=== PATIENT | female | born 1960 | race Caucasian/White ===

== ENCOUNTER → 2016-06-06 | Outpatient (CLI) | payer BC ==
[~2016-06-06] MED LIST: AZIT-21 PO; CALC-987 PO; CYAN50008 PO; CYCL10TA9 PO; FLUO20CA25 PO; GLUC-116 PO; IBP800T PO; MULT-35 PO; OMG1KC PO; OXYC-188 PO; TRIA16.5 NS; VITA-240 PO
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
--- NOTE | 2016-06-11 14:02 | Diagnostic Imaging Report ---
Bilateral screening mammogram The current study was also evaluated with a Computer Aided Detection (CAD) system. Indication: Screening. No current complaints stated on the questionnaire. COMPARISON: 05/18/14 Findings: The breasts are composed of scattered fibroglandular densities. There is a 7 mm focal asymmetry in the central aspect of the left breast. The right breast demonstrate no mass, architectural distortion or suspicious calcification. IMPRESSION: Focal compression view and ultrasound evaluation for central left breast focal asymmetry is recommended. BI-RADS 0. ACR BI-RADS Category 0: Incomplete. (Needs additional imaging evaluation). Result letter will be mailed to the patient. Note: At least 10% of breast cancer is not imaged by mammography. Dictated by: Dictated on workstation # [id number]
== END ==
LOC: RAD 13:18
PROVIDERS: ATTEND Family Medicine
DX: Z12.31 Encounter for screening mammogram for malignant neoplasm of breast (principal)
CPT/HCPCS: 77067

== ENCOUNTER → 2016-06-13 | Outpatient (CLI) | payer BC ==
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
--- NOTE | 2016-06-13 08:17 | Diagnostic Imaging Report ---
EXAMINATION: Left breast diagnostic mammogram. CAD is utilized. The current study was also evaluated with a Computer Aided Detection (CAD) system. INDICATION: Asymmetries in the central aspect of the left breast. FINDINGS: The left breast is composed of scattered fibroglandular densities. The previously seen asymmetry is less prominent on the cc projection and appear near completely resolved on the MLO projection. This is in favor of summation artifact of parenchyma. IMPRESSION: Less prominent asymmetry on focal compression views. May relate to summation artifact of parenchyma. Ultrasound evaluation pending. BI-RADS 0. ACR BI-RADS Category 0: Incomplete. (Needs additional imaging evaluation). Result letter will be mailed to the patient. Note: At least 10% of breast cancer is not imaged by mammography. Dictated by: Dictated on workstation # [id number]
--- NOTE | 2016-06-13 19:10 | Diagnostic Imaging Report ---
INDICATION: Left breast ultrasound. INDICATION: Asymmetries in the central aspect of the left breast. FINDINGS: The four quadrants and retroareolar region of the left breast were scanned. There are two adjacent simple cysts, measuring up to 5 mm each, at the 7:00 zone 2 cm from the nipple. This probably explains the asymmetry seen on mammography with no suspicious lesion seen. IMPRESSION: Simple cysts at the 7:00 zone, 2 cm from the nipple. This correlates with the asymmetry seen with no suspicious lesion. Annual screening mammogram recommended. ACR BI-RADS Category 2: Benign findings. Result letter will be mailed to the patient. Note: At least 10% of breast cancer is not imaged by mammography. Dictated by: Dictated on workstation # [id number]
== END ==
LOC: RAD 07:48
PROVIDERS: ATTEND Family Medicine
DX: R92.8 Other abnormal and inconclusive findings on diagnostic imaging of breast (principal)
CPT/HCPCS: 76641

== ENCOUNTER 2016-07-04 08:52 | Outpatient (CLI) | payer BC ==
[~2016-07-04] VITALS: Ht 167.6 cm; Wt 106.3 kg
[~2016-07-04 08:52] MED LIST changes: -CALC-987 PO; -CYAN50008 PO; -GLUC-116 PO; -MULT-35 PO; -OMG1KC PO; -OXYC-188 PO; -VITA-240 PO
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
[2016-07-04] MEDS ORDERED: GLUC-116 PO (09:12)
[2016-07-04] MEDS ORDERED: VITA-240 PO (09:12)
[2016-07-04] MEDS ORDERED: CALC-987 PO (09:12)
[2016-07-04] MEDS ORDERED: MULT-35 PO (09:12)
[2016-07-04] MEDS ORDERED: OMG1KC PO (09:12)
[2016-07-04] MEDS ORDERED: CYAN50008 PO (09:12)
[2016-07-04 09:25] VITALS: BP 126/79
== END 2016-07-04 10:30 | disposition home or self-care (01) ==
LOC: PREOP 08:52
PROVIDERS: ATTEND Orthopaedic Surgery
DX: Z01.818 Encounter for other preprocedural examination (principal); Z11.2 Encounter for screening for other bacterial diseases; M75.102 Unspecified rotator cuff tear or rupture of left shoulder, not specified as traumatic
CPT/HCPCS: 87081

== ENCOUNTER 2016-07-10 06:09 | Day surgery (SDC) | payer BC ==
--- NOTE | 2016-07-09 11:05 | HISTORY AND PHYSICAL ---
DICTATING PHYSICIAN: Dr. Boggs DATE OF ADMISSION: 07/10/2016 Outpatient surgery for left shoulder arthroscopy, possible rotator cuff repair. HISTORY: The patient is a 55-year-old female with progressively worsening left shoulder pain. She has undergone injections, which provided only temporary relief of her symptoms. She underwent an MRI which reveals at least a partial thickness tearing of the supraspinatus. She reports activity limitations, difficulty with sleep and interference with her activities of daily living, and therefore has elected to proceed with surgical intervention as conservative measures have not shown any improvement. REVIEW OF SYSTEMS: No chest pain, no shortness of breath. No dysuria. PAST MEDICAL HISTORY: Depression. PAST SURGICAL HISTORY: 1. Herniorrhaphy. 2. Appendectomy. FAMILY HISTORY: Significant for breast cancer. PRIMARY CARE PROVIDER: Dr. Agarwal MEDICATIONS: None. ALLERGIES: 1. SULFA. 2. PENICILLIN. 3. CODEINE. SOCIAL HISTORY: The patient drinks alcohol rarely, denies tobacco use. PHYSICAL EXAMINATION: The patient's well-developed, well-nourished and in no acute distress. HEENT: Normocephalic, atraumatic. Pupils are equal, and reactive to light, oropharynx is clear. NECK: Supple. No lymphadenopathy. LUNGS: Clear to auscultation bilaterally. HEART: Regular rate and rhythm. ABDOMEN: Soft, nontender, nondistended. EXTREMITY EXAM: The left shoulder demonstrates positive Neer and positive Schultz sign. She has positive [place]'s maneuver, pain with apprehension. She has pain with resisted abduction and external rotation but no gross weakness noted. She is nontender over her acromioclavicular joint and she has no pain with crossed body adduction. She has full active forward elevation, external and internal rotation. IMPRESSION: Left shoulder partial thickness rotator cuff tear, likely SLAP tear. PLAN: Left shoulder arthroscopy, biceps tenotomy, acromioplasty, possible open rotator cuff repair. The risks, benefits, options, ramifications and recovery have been discussed at length with the patient and she understands and wishes to proceed. Job ID: [id number] Dictated Date: 07/02/2016 09:40:00 Gray Tender Date: 07/02/2016 11:30:48/jovanna
[~2016-07-10] VITALS: Ht 167.6 cm; Wt 106.3 kg
[~2016-07-10 06:09] MED LIST changes: +CALC-987 PO; +CYAN50008 PO; +GLUC-116 PO; +MULT-35 PO; +OMG1KC PO; +VITA-240 PO
--- OUTSIDE RECORDS SUMMARY | 2016-07-10 06:15 | XMS REPORT | Continuity of Care Document ---
Author Author [facility] Organization [facility] Address Unknown Phone Unavailable Care Team Providers Care Sash Clamp Operator Name Role Phone ELIZABETH JAMISON MD PCP Insurance Providers Payer Name Policy Number Subscriber Name Relationship [facility] [id number] Samantha Malone 18 Self / Same As Patient Advance Directives Directive Response Recorded Date/Time Advance Directives No 07/04/16 9:05am Health Care Power of Secondary English Teacher No 07/04/16 9:05am Organ Donor No 07/04/16 9:05am Resuscitation Status Full Code 07/04/16 9:05am Problems No problem information available. Medications Current Home Medications Medication Dose Units Route Directions Days/Qty Instructions Start Date Multivitamin 1 Each 1 Each Oral Daily 07/04/16 Gluc/Shyam-Msm#2/C/D3/Ajlil/Born 1 Each 1 Each Oral Daily 07/04/16 Vitamin E (Dl,Tocopheryl Acet) 400 Unit 400 Unit Oral Daily 07/04/16 [place] 3 Polyunsat Fatty Acids 1,000 Mg 1,000 Mg Oral Daily 07/04/16 Calcium Carbonate/Vitamin D3 1 Each 1 Each Oral Daily 07/04/16 Cyanocobalamin (Vitamin B-12) 5,000 Mcg 5,000 Mcg Oral Daily Past Home Medications Medication Directions Ordered Status Fluoxetine Hcl (Prozac) 20 Mg Capsule, 20 Mg Oral Daily 09/13/09 Discontinued Triamcinolone Acetonide 16.5 Gm [place], 16.5 Gm Nasal Twice A Day 07/05/12 Discontinued Azithromycin (Zpak) 250 Mg Tab, 2 Tab Oral Daily 07/05/12 Discontinued Cyclobenzaprine Hcl (Flexeril) 10 Mg Tablet, 1 Each Oral Q8hr Prn 01/04/13 Discontinued Ibuprofen 800 Mg Tab, 800 Mg Oral Give Every 8 Hrs On Schedule as needed 01/08 Discontinued Social History Social History Problem Response Recorded Date/Time Alcohol Use Denies Use 01/04/2013 2:19pm Recreational Drug Use No 01/04/2013 2:19pm Recent Foreign Travel No 07/04/2016 9:03am Recent Infectious Disease Exposure No 07/04/2016 9:03am Sexually Transmitted Disease No 07/04/2016 9:05am HIV/AIDS No 07/04/2016 9:05am Smoking Status Never a Smoker 07/04/2016 9:05am Recent Hopitalizations No 07/04/2016 9:05am Sexually Transmitted Disease No 07/04/2016 9:05am Query Response Start Date Stop Date Smoking Status Never a Smoker Hospital Discharge Instructions No hospital discharge instructions. Plan of Care Discharge Date 07/04/16 10:30am Prescriptions See Medication Section Functional Status No functional status results. Allergies, Adverse Reactions, Alerts Allergen Type Severity Reaction Status Last Updated Penicillins ([id number]) Allergy Intermediate HIVES Active 07/04/16 Sulfa (Sulfonamide Antibiotics) (G042429398) Allergy Intermediate HIVES Active 07/04/16 hydrocodone (M973547382) Allergy Mild RASH Active 07/05/12 egg (M484563763) Allergy Unknown Active 07/05/12 milk (H468593464) Allergy Unknown Active 07/04/16 CHOCOLATE Allergy Unknown Active 07/05/12 REFINED SUGAR Allergy Unknown Active 07/05/12 Immunizations No immunization records. Vital Signs Acute Vital Signs Vital Response Date/Time Pulse Rate (adult) 79 bpm (60 - 90) 07/04/2016 9:25am Respiratory Rate 16 bpm (12 - 24) 07/04/2016 9:25am O2 Sat by Pulse Oximetry 99 % (88 - 100) 07/04/2016 9:25am Blood Pressure 126/79 mm Hg 07/04/2016 9:25am Blood Pressure Mean 95 mm Hg 07/04/2016 9:25am Pain Numeric Pain Scale 2 07/04/2016 9:25am Height (Feet) 5 feet 07/04/2016 9:03am Height (Inches) 6.00 inches 07/04/2016 9:03am Height (Calculated Centimeters) 167.190401 cm 07/04/2016 9:03am Weight (Pounds) 234 pounds 07/04/2016 9:03am Weight (Ounces) 4.0 oz 07/04/2016 9:03am Weight (Calculated Grams) 765059.01 gm 07/04/2016 9:03am Weight (Calculated Kilograms) 106.568934 kilograms 07/04/2016 9:03am Calculated BMI 37.8 07/04/2016 9:03am Results No known relevant diagnostic tests, laboratory data and/or discharge summary. Procedures No known history of procedures. Encounters Encounter Location Arrival/Admit Date Discharge/Depart Date Attending Provider Departed Clinic [facility] 07/04/16 8:52am 07/04/16 10: 30am KUNAL CRUZ MD Registered Clinic [facility] 06/13/16 7:48am ELIZABETH JAMISON MD Registered Clinic [facility] 06/06/16 1:18pm ELIZABETH JAMISON MD
--- OUTSIDE RECORDS SUMMARY | 2016-07-10 06:15 | XMS REPORT | Continuity of Care Document ---
Author Author [facility] Organization [facility] Address Unknown Phone Unavailable Care Team Providers Care Nursing Unit Manager Name Role Phone ELIZABETH JAMISON MD PCP Insurance Providers Payer Name Policy Number Subscriber Name Relationship [facility] [id number] Samantha Malone 18 Self / Same As Patient Advance Directives Directive Response Recorded Date/Time Advance Directives No 07/04/16 9:05am Health Care Power of Pack Press Operator No 07/04/16 9:05am Organ Donor No 07/04/16 9:05am Resuscitation Status Full Code 07/04/16 9:05am Problems No problem information available. Medications Current Home Medications Medication Dose Units Route Directions Days/Qty Instructions Start Date Multivitamin 1 Each 1 Each Oral Daily 07/04/16 Gluc/Shyam-Msm#2/C/D3/Jalil/Born 1 Each 1 Each Oral Daily 07/04/16 Vitamin E (Dl,Tocopheryl Acet) 400 Unit 400 Unit Oral Daily 07/04/16 [place] 3 Polyunsat Fatty Acids 1,000 Mg 1,000 Mg Oral Daily 07/04/16 Calcium Carbonate/Vitamin D3 1 Each 1 Each Oral Daily 07/04/16 Cyanocobalamin (Vitamin B-12) 5,000 Mcg 5,000 Mcg Oral Daily Past Home Medications Medication Directions Ordered Status Fluoxetine Hcl (Prozac) 20 Mg Capsule, 20 Mg Oral Daily 09/13/09 Discontinued Triamcinolone Acetonide 16.5 Gm [place], 16.5 Gm Nasal Twice A Day 07/05/12 [...] Type Severity Reaction Status Last Updated Penicillins ([id number]) Allergy Intermediate HIVES Active 07/04/16 Sulfa (Sulfonamide Antibiotics) (H550895576) Allergy Intermediate HIVES Active 07/04/16 hydrocodone (W499815287) Allergy Mild RASH Active 07/05/12 egg (X878910072) Allergy Unknown Active 07/05/12 milk (N349488703) Allergy Unknown Active 07/04/16 CHOCOLATE Allergy Unknown [...] 6.00 inches 07/04/2016 9:03am Height (Calculated Centimeters) 167.485037 cm 07/04/2016 9:03am Weight (Pounds) 234 pounds 07/04/2016 9:03am Weight (Ounces) 4.0 oz 07/04/2016 9:03am Weight (Calculated Grams) 117245.01 gm 07/04/2016 9:03am Weight (Calculated Kilograms) 106.735264 kilograms 07/04/2016 9:03am Calculated BMI 37.8 07/04/2016 9:03am Results No known relevant diagnostic tests, laboratory data and/or discharge summary. Procedures No known history of procedures. Encounters Encounter Location Arrival/Admit Date Discharge/Depart Date Attending Provider Departed Clinic [facility] 07/04/16 8:52am 07/04/16 10: 30am KUNAL CRUZ MD Registered Clinic [facility] 06/13/16 7:48am ELIZABETH JAMISON MD Registered Clinic [facility] 06/06/16 1:18pm ELIZABETH JAMISON MD
[2016-07-10 06:30] VITALS: BP 136/95
[2016-07-10] MEDS ORDERED: CATHETER FLUSH 10 ML SYR IV PRN (06:45)
[2016-07-10] MEDS ORDERED: CLINDAMYCIN 600 MG/50 ML IVPB 50 ML IV ONE (06:45)
[2016-07-10] MEDS ORDERED: ROPIVACAINE 5MG/ML 30ML VIAL ONE (06:46)
[2016-07-10] MEDS ORDERED: MIDAZOLAM 2 MG/2 ML (VERSED) VIAL ONE (06:46)
[2016-07-10] MEDS ORDERED: fentaNYL INJECTION 100 MCG/2 ML AMP ONE (07:11)
[2016-07-10] MEDS ORDERED: LIDOCAINE PF 2% 10 ML (XYLOCAINE) AMP ONE (07:11)
[2016-07-10] MEDS ORDERED: proPOfol 200 MG/20 ML (DIPRIVAN) VIAL IV ONE (07:11)
[2016-07-10] MEDS ORDERED: BUPIVACAINE 0.5% 30 ML (SENSORCAINE) VIAL ONE (07:17)
[2016-07-10] MEDS ORDERED: morphine PF (DURAMORPH) 10 MG/10 ML AMP ONE (07:17)
[2016-07-10] MEDS ORDERED: LACTATED RINGERS 1,000 ML IV PRN (07:22)
--- NOTE | 2016-07-10 07:22 | Progress Note-Pre Operative ---
Pre-Operative Progress Note H&P Reviewed The H&P was reviewed, patient examined and no changes noted. Date H&P Reviewed: Jul 10, 2016 Time H&P Reviewed: 07:11 Pre-Operative Diagnosis: left shoulder rotator cuff and SLAP tears KUNAL CRUZ MD Jul 10, 2016 07:22
--- NOTE | 2016-07-10 07:23 | Progress Note-Post Operative ---
Post-Operative Progess Note Inspector Brake Lining Osvaldo Marcum Pre-Operative Diagnosis left shoulder rotator cuff and SLAP tears Post-Operative Diagnosis left shoulder SLAP tear and rotator cuff tear Post-Op Procedure Note Date of Procedure: Jul 10, 2016 Name of Procedure: left shoulder aarthroscopic biceps tenotomy, acromioplasty, and open rotator cuff repair Anesthesia Type GETA plus interscalene Estimated blood loss (mL): minimal Packing: none Specimen(s) collected none KUNAL CRUZ MD Jul 10, 2016 07:23
[2016-07-10] MEDS ORDERED: oxyCODONE/APAP 5/325MG (PERCOCET 5) TABLET PO PRN (07:45)
[2016-07-10] MEDS ORDERED: LACTATED RINGERS 1,000 ML IV ONE (07:53)
[2016-07-10] MEDS ORDERED: ONDANSETRON 4 MG/2 ML (SDV) Z0FRAN ONE (07:53)
[2016-07-10] MEDS ORDERED: SEVOFLURANE (ULTANE) 15 ML INHAL SOLN ONE ×2 (07:53→08:26)
[2016-07-10] MEDS ORDERED: GLYCOPYRROLATE 0.2 MG/ML (ROBINUL) 2 ML VIAL ONE (08:19)
[2016-07-10] MEDS ORDERED: NEOSTIGMINE (BLOXIVERZ ) 1 MG/1ML 10 ML VIAL ONE (08:19)
[2016-07-10] MEDS ORDERED: ONDANSETRON 4 MG/2 ML (SDV) Z0FRAN IV PRN (08:45)
[2016-07-10] MEDS ORDERED: fentaNYL INJECTION 100 MCG/2 ML AMP IV PRN (08:45)
[2016-07-10] MEDS ORDERED: PROMETHAZINE INJ 25 MG/ML (PHENERGAN) AMP IV PRN (08:45)
[2016-07-10] MEDS ORDERED: morphine INJ 10 MG/ML 1ML (SYR OR VIAL) IV PRN (08:45)
[2016-07-10 09:45] VITALS: BP 103/62
[2016-07-10 10:15] VITALS: BP 114/87
[2016-07-10 10:45] VITALS: BP 118/59
[2016-07-10] MEDS ORDERED: OXYC-188 PO (10:45)
[2016-07-10 12:00] VITALS: BP 118/59
--- NOTE | 2016-07-10 13:28 | OPERATIVE REPORT ---
PROCEDURE PHYSICIAN: KUNAL CRUZ DATE OF PROCEDURE: 07/10/2016 PREOPERATIVE DIAGNOSIS: 1. Left shoulder SLAP tear. 2. Left shoulder rotator cuff tear. POSTOPERATIVE DIAGNOSIS: 1. Left shoulder SLAP tear. 2. Left shoulder rotator cuff tear. PROCEDURE: 1. Left shoulder arthroscopic biceps tenotomy. 2. Left shoulder arthroscopic acromioplasty. 3. Left shoulder open rotator cuff repair. SURGEON: Ambrose INSTRUMENT LENS INSPECTOR: Osvaldo Marcum who assisted throughout the procedure and closed the incisions. ANESTHESIA: General endotracheal plus interscalene nerve block by Sabino Beck CRNA. ESTIMATED BLOOD LOSS: Minimal. DRAINS: None. COMPLICATIONS: None. POSTOPERATIVE PLAN: Passive range of motion and sling wear for 4 weeks. DISPOSITION: The patient was transported to the recovery room, awake and in stable condition. STATEMENT OF MEDICAL NECESSITY: The patient is a 55-year-old, uuvcg-obba-ebozdump female who sustained a left greater tuberosity fracture, in the fall. This had gone on to union but she continued to have pain. An MRI revealed a greater than 50% partial thickness rotator cuff tear of the supraspinatus and due to failure to respond to extensive conservative measures, the patient elected to proceed with surgical intervention. Examination under anesthesia revealed forward elevation 170 degrees, external rotation 85 degrees and internal rotation 70 degrees. Arthroscopic findings demonstrated a 75% thickness tear of the supraspinatus at the midportion of its insertion. The greater tuberosity was healed. There was a type II SLAP tear. The remainder of the labrum was intact. The remainder of the rotator cuff was intact. There was no significant humeral head or glenoid chondromalacia. The subacromial space demonstrated moderate bursitis with sloping of anterolateral acromion. PROCEDURE: After risks and benefits of procedure were discussed and questions were answered an informed consent was signed and placed on chart. The operative site was confirmed in the preoperative holding area and initialed by the surgeon. The patient was then transported to the operating room and after adequate levels of regional and general endotracheal anesthetic were obtained, a timeout was called confirming the operative site. The left shoulder and upper extremity were prepped and draped in the usual sterile fashion after examination and been performed. The shoulder joint was injected with 20 mL of fluid as was the subacromial space and a standard posterior portal was placed. Under direct visualization anterior portal was created in the interval between the biceps, subscapularis and glenoid. The biceps anchor was released and the stump was debrided with a shaver. The scope was redirected into the subacromial space and a lateral portal was created. Bursectomy was performed and acromion was planed to a depth a flat type I acromion. The lateral portal was then extended. The deltoid was split in line with its fibers leaving attached to the acromion. A bleeding bony bed was prepared just off the articular surface. The rotator cuff tear was completed and repaired using the single corkscrew anchor and a modified Shreyas-Prasanth repair. An excellent repair was obtained with no undue tension was noted at the arm at the side. The wound was copiously irrigated. The deltoid was repaired in lsxn-fz-ntsk fashion using number 2 FiberWire in a hcbznm-ya-taqau interrupted fashion. 2-0 Vicryl was used to reapproximate subcutaneous tissue after the wound had been further irrigated and the skin was closed with 4-0 nylon in a running, alternating horizontal mattress fashion. The portal sites closed with 4-0 nylon as well in a simple interrupted fashion. The shoulder joint was injected with Duramorph. Portal sites were infiltrated with plain Marcaine. A soft dressing was applied and the patient was transported to the recovery room, awake, in stable condition. Job ID: [id number] Dictated Date: 07/10/2016 08:33:58 Wreath Machine Operator Date: 07/10/2016 13:17:41 / jovanna
--- NOTE | 2016-07-11 08:26 | Anesthesia-Peripheral Nerve Bl ---
Procedure Start/Stop Time Date of Procedure: Jul 10, 2016 Start Time: 06:35 Stop Time: 06:50 Peripheral Nerve Block Peripheral Nerve Blockade Risk/Benefits/Alternatives discussed, including IV injection leading to complications or seizures, nerve irritation or damage, pneumothorax, total spinal anesthesia, injection, and/or bleeding. Approach: Interscalene Block Side Confirmed: LEFT Indication: Req Pain Mgmt by Surgeon Specifically requested for management of pain by:Dr Boggs Patient Condition Vital Signs Vital Signs Date Time Temp Pulse Resp B/P Pulse Ox O2 Delivery O2 Flow Rate FiO2 07/10/16 12:00 74 16 118/59 97 07/10/16 10:45 97.1 Room Air Pain Intensity: 0 Patient Condition: Sedate/contact maintained Procedure Prepartation: Chlorhexidine Position: Supine [place]: Short-bevel Needle (s) Size: 22g 2" Technique: Nerve Stimulation Motor response or parethesia o: bicepts twitch mA: 0.5 Sedation Given: Midazolam (2mg) Injectate: ropivacaine Concentration %: 0.5 Volume (ml): 30 Epinephrine used: No Narrative Injection was made incrementally with constant monitoring. Aspiration every (mls): 5 Blood Aspirated: No Pain on injection noted: No Normal Resistance on injection: Yes Events Events: None:easy well tolerated Sucess: Complete (Patient had good set up of block by start of surgery) Patient Conditon Post Peripheral Nerve Block Post Peripheral Nerve Block Vital Signs: Blood Pressure: Systolic Diastolic Heart Rate Blood Pressure Systolic: 118 Blood Pressure Diastolic: 59 Pulse Rate (adult): 74 YUKI RICHARDSON CRNA Jul 11, 2016 08:26
== END 2016-07-10 12:20 | disposition home or self-care (01) ==
LOC: SDC 06:09
PROVIDERS: ATTEND Orthopaedic Surgery
DX: S43.432A Superior glenoid labrum lesion of left shoulder, initial encounter (principal); M75.102 Unspecified rotator cuff tear or rupture of left shoulder, not specified as traumatic

== ENCOUNTER 2016-11-08 05:41 | Outpatient (CLI) | payer BC ==
[~2016-11-08] VITALS: Ht 167.6 cm; Wt 106.1 kg
[~2016-11-08 05:41] MED LIST changes: +OXYC-188 PO
== END 2016-11-08 08:47 ==
LOC: PREOP 05:41
PROVIDERS: ATTEND Surgery
DX: Z01.818 Encounter for other preprocedural examination (principal); Z12.11 Encounter for screening for malignant neoplasm of colon

== ENCOUNTER 2016-11-11 07:06 | Day surgery (SDC) | payer BC ==
[~2016-11-11] VITALS: Ht 167.6 cm; Wt 106.1 kg
[2016-11-11] MEDS ORDERED: NS IV 500 ML 500 ML IV SCH (07:45)
[2016-11-11 07:58] VITALS: BP 128/82
--- NOTE | 2016-11-11 08:38 | History & Physicial ---
History of Present Illness History of Present Illness Reason for visit/HPI to undergo screening colonoscopy. Positive family history of colon cancer Date of Admission Date Seen by Provider: Nov 11, 2016 Time Seen by Provider: 08:12 I consulted on this patient on 11/11/16 08:36 Attending Physician David Luque MD Admitting Physician Paulino Agarwal MD Consult Allergies and Home Medications Allergies Coded Allergies: Penicillins (Verified Allergy, Intermediate, HIVES, 07/04/16) Sulfa (Sulfonamide Antibiotics) (Verified Allergy, Intermediate, HIVES, 07/04/16) hydrocodone (Verified Allergy, Mild, RASH, 07/05/12) egg (Verified Allergy, Unknown, 07/05/12) milk (Verified Allergy, Unknown, 07/04/16) Uncoded Allergies: CHOCOLATE (Allergy, Unknown, 07/05/12) REFINED SUGAR (Allergy, Unknown, 07/05/12) Home Medications Calcium Carbonate/Vitamin D3 1 Each Tablet, 1 EACH PO DAILY, (Reported) Cyanocobalamin (Vitamin B-12) 5,000 Mcg Tab.rapdis, 5,000 MCG PO DAILY, ( Reported) Gluc/Shyam-MSM#2/C/D3/Jalil/Born 1 Each Tablet, 1 EACH PO DAILY, (Reported) Multivitamin 1 Each Tablet, 1 EACH PO DAILY, (Reported) [place] 3 Polyunsat Fatty Acids 1,000 Mg Cap, 1,000 MG PO DAILY, (Reported) Vitamin E (Dl,Tocopheryl Acet) 400 Unit Capsule, 400 UNIT PO DAILY, (Reported) Past Rdejdyy-Zxayum-Aotnbv Hx Patient Social History Marrital Status: Employed/Student: employed Alcohol Use: Denies Use Recreational Drug Use: No Smoking Status: Never a Smoker Recent Foreign Travel: No Contact w/other who traveled: No Recent Hopitalizations: No Seasonal Allergies Seasonal Allergies: No Surgeries HX Surgeries: Yes (BILAT INGUINAL HERNIA, VENTRAL HERNIA, Left RCR) Surgeries: Appendectomy Respiratory Hx Respiratory Disorders: No Cardiovascular Hx Cardiovascular Disorders: No Neurological Hx Neurological Disorders: No Reproductive System Hx Reproductive Disorders: No Sexually Transmitted Disease: No HIV/AIDS: No Female Reproductive Disorders: Denies Genitourinary Hx Genitourinary Disorders: No Gastrointestinal Hx Gastrointestinal Disorders: No Musculoskeletal Hx Musculoskeletal Disorders: Yes (MILD ARTHRITIS, LEFT HIP AND LEG PAIN) Musculoskeletal Disorders: Degenerate Disk Disease, Arthritis Endocrine Hx Endocrine Disorders: No HEENT HX ENT Disorders: Yes (GLASSES) Loss of Vision: Bilateral Hearing Impairment: Denies Cancer Hx Cancer: No Psychosocial Hx Psychiatric Problems: Yes Behavioral Health Disorders: Depression Integumentary HX Skin/Integumentary Disorder: No Blood Transfusions Hx Blood Disorders: No Family Medical History Significant Family History: No Pertinent Family Hx Constitutional: no symptoms reported EENTM: hoarseness Respiratory: no symptoms reported Cardiovascular: no symptoms reported Gastrointestinal: no symptoms reported Musculoskeletal: no symptoms reported Skin: no symptoms reported Psychiatric/Neurological: No Symptoms Reported Physical Exam Vital Signs Vital Sign - Last 12Hours 11/11/16 07:58 Temp 97.0 Pulse 77 Resp 18 B/P (MAP) 128/82 Pulse Ox 95 O2 Delivery Room Air Capillary Refill : General Appearance: No Apparent Distress HEENT: Normal ENT Inspection Neck: Normal Inspection Respiratory: Chest Non Tender Cardiovascular: Regular Rate, Rhythm Gastrointestinal: Non Tender, Soft Rectal: Deferred Extremity: Normal Inspection Neurologic/Psychiatric: Alert, Oriented x3 Skin: Warm/Dry Assessment/Plan Assessment and Plan lady for screening colonoscopy. Maternal uncle with colon cancer in his 60s. Details of colonoscopy, post polypectomy bleeding and iatrogenic perforation discussed in detail. Seems to be in agreement to proceed Problems: DAVID LUQUE MD Nov 11, 2016 8:38 am
[2016-11-11] MEDS ORDERED: MIDAZOLAM 2 MG/2 ML (VERSED) VIAL ONE ×3 (08:55)
[2016-11-11] MEDS ORDERED: fentaNYL INJECTION 100 MCG/2 ML AMP ONE (08:55)
[2016-11-11] MEDS: fentaNYL INJECTION 100 MCG/2 ML AMP IVP PRN ×2 (09:10→09:13)
[2016-11-11] MEDS: MIDAZOLAM 2 MG/2 ML (VERSED) VIAL IVP PRN ×2 (09:11→09:14)
--- NOTE | 2016-11-11 09:33 | Conscious Sedation/ASA ---
Conscious Sedation Pre-Proced Time Reviewed: 08:18 ASA Class: 2 Airway Mallampati Classification: (kaibab appropriate class) I. II. III, IV Lungs Heart ASA score ASA 1: a normal healthy patient ASA 2: a patient with a mild systemic disease (mid diabetes, controlled hypertension, obesity ASA 3: a patient with a severe systemic disease that limits activity (angina , COPD, prior Myocardial infarction) ASA 4: a patient with an incapacitating disease that is a constant threat to life (CHF, renal failure) ASA 5: a moribund patient not expected to survive 24 hrs. (ruptured aneurysm) ASA 6: a declared brain patient whose organs are being harvested. For emergent operations, add the letter E after the classification Grade 2 Sedation Plan: Discussed options with patient/fam Note The patient is an appropriate candidate to undergo the planned procedure, sedation, and anesthesia. The patient immediately re-assessed prior to indication. HARDIK LUQUE MD Nov 11, 2016 9:33 am
--- NOTE | 2016-11-11 09:37 | Endo Procedure Record ---
Endo Procedure Report Date of Procedure Nov 11, 2016 Surgeon (s) HARDIK LUQUE MD Post Procedure/Op Diagnosis Diffuse diverticulosis 1 mm rectal polyp Procedure Performed colonoscopy to cecum Polypectomy( Hot biopsy) Description of Procedure Anesthesia Type: Conscious Sedation Specimen(s) collected/removed rectal polyp Description of the Procedure Indication for procedure: this lady came in for screening colonoscopy. She reported a positive family history of colon cancer in her maternal uncle. Informed consent was obtained after reviewing the procedure and complications of iatrogenic perforation and postpolypectomy bleeding. Description of the procedure: She was placed in left lateral decubitus position and her vital signs were monitored. Conscious sedation was achieved using Versed and fentanyl. Digital rectal examination was unremarkable. The colonoscope was then introduced into the rectum and advanced all the way up to the cecum. The scope was then withdrawn slowly and the mucosa examined in a systematic fashion. Findings: 1. 1 mm polyp at the mid rectum, that was excised with hot biopsy forceps 2.diffuse diverticulosis. She tolerated the procedure well and was taken back to the nursing area in a stable condition. Impression; screening colonoscopy. Very small rectal polyp excised. Recommend repeating in 5 years. Copies To: ELIZABETH JAMISON MD, XAVIER M MD Nov 11, 2016 9:37 am
--- NOTE | 2016-11-11 09:38 | Discharge Inst-Simple/Standard ---
Discharge Inst-Standard Discharge Medications New, Converted or Re-Newed RX: Other Patient Instructions/Follow Up Plan of Care/Instructions/FU: please schedule a thyroid ultrasound as an outpatient Activity as Tolerated: Yes Discharge Diet: No Restrictions HARDIK LUQUE MD Nov 11, 2016 9:38 am
[2016-11-11 09:45] VITALS: BP 122/72
[2016-11-11 10:10] VITALS: BP 143/92
[2016-11-11 10:59] VITALS: BP 143/92
== END 2016-11-11 11:00 | disposition home or self-care (01) ==
LOC: ENDO 07:06
PROVIDERS: ATTEND Surgery
DX: Z12.11 Encounter for screening for malignant neoplasm of colon (principal); Z80.0 Family history of malignant neoplasm of digestive organs; K62.1 Rectal polyp; K57.30 Diverticulosis of large intestine without perforation or abscess without bleeding

== ENCOUNTER → 2016-11-14 | Outpatient (CLI) | payer BC ==
--- NOTE | 2016-11-14 11:13 | Diagnostic Imaging Report ---
INDICATION: Hoarseness TECHNIQUE: Grayscale sonographic images of the thyroid gland. CORRELATION STUDY: None FINDINGS: RIGHT LOBE: 3.7 x 1.3 x 1.3 cm. There is normal echotexture about the right lobe. LEFT LOBE: 4.0 x 1.3 x 1.8 cm. There is normal echotexture about the left lobe. Isthmus appears unremarkable. IMPRESSION: Overall somewhat small, but otherwise unremarkable appearing thyroid gland. Dictated by: Dictated on workstation # [id number]
== END ==
LOC: RAD 10:19
PROVIDERS: ATTEND Surgery
DX: R49.0 Dysphonia (principal)
CPT/HCPCS: 76536

== ENCOUNTER → 2018-11-26 | Outpatient (CLI) | payer BC, OTHER ==
--- NOTE | 2018-11-26 08:51 | Diagnostic Imaging Report ---
Indication: Routine screening. Comparison is made with prior mammogram from 06/06/2016 and 05/18/2012. 2-D and 3-D bilateral screening mammography was performed with CAD. Scattered fibroglandular densities are identified bilaterally. The overall parenchymal pattern appears to be stable. No mass or malignant appearing microcalcifications are seen. Axillae are unremarkable. Impression: BI-RADS category one No mammographic features suspicious for malignancy are identified. ACR BI-RADS Category 1: Negative. Result letter will be mailed to the patient. Note: At least 10% of breast cancer is not imaged by mammography. Dictated by: Dictated on workstation # [id number]
== END ==
LOC: RAD 07:44
PROVIDERS: ATTEND Family Medicine
DX: Z12.31 Encounter for screening mammogram for malignant neoplasm of breast (principal)
CPT/HCPCS: 77067

== ENCOUNTER → 2020-01-10 | Outpatient (CLI) | payer OTHER ==
[~2020-01-10] MED LIST changes: +VITA-235 PO; -VITA-240 PO
--- NOTE | 2020-01-10 09:07 | Diagnostic Imaging Report ---
INDICATION: Routine screening. COMPARISON: 11/26/2018 and 06/06/2016. TECHNIQUE: 2D and 3D bilateral screening mammography was performed with CAD. FINDINGS: Scattered fibroglandular densities are identified bilaterally. The parenchymal pattern is stable. No mass or malignant appearing microcalcifications are seen. The axillae are unremarkable. IMPRESSION: No mammographic features suspicious for malignancy are identified. ACR BI-RADS Category 1: Negative. Result letter will be mailed to the patient. Note: At least 10% of breast cancer is not imaged by mammography. Dictated by: Dictated on workstation # [id number]
== END ==
LOC: RAD 07:35
PROVIDERS: ATTEND Family Medicine
DX: Z12.31 Encounter for screening mammogram for malignant neoplasm of breast (principal)
CPT/HCPCS: 77063; 77067